=== PATIENT | female | born 1995 | race Caucasian/White ===

== ENCOUNTER → 2024-06-05 14:04 | Outpatient (REF) | payer BC, SELFPAY | LOC: HWRAD 14:04 | PROVIDERS: ATTENDING PHYSICIAN Nurse Practitioner Adult Health | DX: J22 Unspecified acute lower respiratory infection (principal) | CPT/HCPCS: 71046 ==

== ENCOUNTER → 2024-06-08 13:32 | Outpatient (REF) | payer BC, SELFPAY | LOC: HWRAD 13:32 | PROVIDERS: FAMILY PHYSICIAN Nurse Practitioner Adult Health | DX: N80.9 Endometriosis, unspecified (principal); I82.90 Acute embolism and thrombosis of unspecified vein; Z86.718 Personal history of other venous thrombosis and embolism | CPT/HCPCS: 77080 ==